=== PATIENT | male | born 1945 | race Caucasian/White ===

== ENCOUNTER 2018-07-27 14:00 | Emergency (ER) | payer MEDICARE, BC ==
[~2018-07-27] VITALS: Ht 188 cm; Wt 104.5 kg
[~2018-07-27 14:00] MED LIST: ALLERGY10 MG PO; ALPHAMIN1000 MCG/M IM; ARTHRITIS PAIN325 MG PO; ATROVENT INHALE14 GM IH; FLOMAX0.4 MG PO; GLUCOPHAGE850 MG/TA1 PO; GLYBURIDE5 MG PO; GOOD SENSE ASPI81 M1 PO; INDERAL LA80 MG PO; LIQUID CAL-600600 MG PO; LISINOPRIL10 MG PO; MAG-OX 400400 MG PO; MOBIC15 M1 PO; NORCO 325 MG-51 TAB PO; OMEPRAZOLE DR20 MG PO; ONGLYZA5 MG PO; POTASSIUM20 MEQ PO; PROSCAR 5MG5 MG PO; STOOL SOFTENER1 TAB PO; TERAZOSIN HCL5 MG PO; ULTRAM 50MG TAB50 MG PO; ZOCOR 20MG20 MG PO
[2018-07-27] MEDS ORDERED: LEVEMIR100 U/M1 SQ (14:28)
[2018-07-27] MEDS ORDERED: NORCO 325 MG-51 TA1 PO (16:29)
[2018-07-27 16:38] VITALS: BP 135/78
== END 2018-07-27 16:38 | disposition home or self-care (01) ==
LOC: ED 14:00
DX: M54.89 Other dorsalgia (principal); R07.89 Other chest pain; I10 Essential (primary) hypertension; E11.9 Type 2 diabetes mellitus without complications; W17.89XA Other fall from one level to another, initial encounter; Y93.H9 Activity, other involving exterior property and land maintenance, building and construction; Y92.007 Garden or yard of unspecified non-institutional (private) residence as the place of occurrence of the external cause
CPT/HCPCS: J1885

== ENCOUNTER 2021-03-22 08:46 | Outpatient (RCR) | payer MEDICARE, BC ==
[~2021-03-22 08:46] MED LIST changes: +LEVEMIR100 U/M1 SQ; +NORCO 325 MG-51 TA1 PO
== END 2021-04-27 17:00 | disposition still patient (30) ==
LOC: PT 08:46
DX: M54.12 Radiculopathy, cervical region (principal)